=== PATIENT | male | born 1995 | race Caucasian/White ===

== ENCOUNTER → 2021-12-13 | Outpatient (CLI) | payer OTHER ==
--- NOTE | 2021-12-13 09:30 | RAD ---
EXAM: XR EXAM OF ANKLE 3V 12/13/2021 8:21 AM CLINICAL INDICATION: Chronic ankle pain, weightbearing COMPARISON: None TECHNIQUE: Standing AP, oblique, and lateral views of the left ankle FINDINGS: No acute fracture. Alignment is normal. Ankle mortise is symmetric and talar dome is intac t. Joint spaces are maintained. Soft tissues normal. IMPRESSION: Normal left ankle radiograph. Electronically signed by: Lissett Jose MD (12/13/2021 9:27 AM) [id number]
== END ==
LOC: RAD 08:04
PROVIDERS: ATTEND Podiatrist
DX: M25.571 Pain in right ankle and joints of right foot (principal); M25.572 Pain in left ankle and joints of left foot
CPT/HCPCS: 73610-50